=== PATIENT | female | born 1985 | race Caucasian/White ===

== ENCOUNTER 2021-06-07 09:49 | Outpatient (CLI) | payer MEDICAID ==
[2021-06-07 10:20] LABS: GTT GLUCOSE,FASTING 90 mg/dL (70-100)
== END 2021-06-07 09:50 | disposition home or self-care (01) ==
LOC: LAB 09:49
PROVIDERS: ATTEND Midwife
DX: O99.810 Abnormal glucose complicating pregnancy (principal)
CPT/HCPCS: 36415; 82951; 82952

== ENCOUNTER 2021-08-16 04:29 | Inpatient (IN) | payer MEDICAID ==
[2021-08-16] MEDS ORDERED: LACTATED RINGERS 1,000 ML ONE ×2 (04:44→05:12)
[2021-08-16] MEDS ORDERED: OXYTOCIN 10 UNIT/ML VIAL ONE ×2 (04:45→05:11)
[2021-08-16] MEDS ORDERED: miSOPROStoL 200 MCG TABLET PR PRN (05:08)
[2021-08-16] MEDS ORDERED: SODIUM CHLORIDE FLUSH 0.9% 10 ML SYRINGE IVP PRN (05:08)
[2021-08-16] MEDS ORDERED: fentaNYL 100 MCG/2 ML VIAL IVP PRN (05:08)
[2021-08-16] MEDS ORDERED: OXYTOCIN 10 UNIT/ML VIAL IM PRN (05:08)
[2021-08-16] MEDS ORDERED: TERBUTALINE 1 MG/ML VIAL SUBQ PRN (05:08)
[2021-08-16] MEDS ORDERED: CARBOPROST TROMETHAMINE 250 MCG/ML AMP IM PRN (05:08)
[2021-08-16] MEDS ORDERED: LABETALOL 20 MG/4 ML SYRINGE IVP PRN ×2 (05:08)
[2021-08-16] MEDS ORDERED: TRANEXAMIC ACID IN NACL 1,000 MG/100 ML BAG IV PRN (05:08)
[2021-08-16] MEDS ORDERED: miSOPROStoL 200 MCG TABLET BC PRN (05:08)
[2021-08-16] MEDS ORDERED: hydrALAZINE INJ 20 MG/ML VIAL IVP PRN (05:08)
[2021-08-16] MEDS ORDERED: METHYLERGONOVINE 0.2 MG/ML VIAL IM PRN (05:08)
[2021-08-16] MEDS ORDERED: LIDOCAINE-MPF 1% 30 ML VIAL ID PRN (05:08)
[2021-08-16] MEDS ORDERED: miSOPROStoL 200 MCG TABLET ONE (05:10)
[2021-08-16] MEDS ORDERED: TRANEXAMIC ACID IN NACL 1,000 MG/100 ML BAG IV ONE (05:12)
[2021-08-16] MEDS ORDERED: OXYTOCIN/SODIUM CHLORIDE 500 ML IV ONE (05:12)
[2021-08-16 05:16] LABS: BASOPHILS % (AUTO) 0.1 %; EOSINOPHILS # (AUTO) 0.1 10^3/uL (0.0-0.7); EOSINOPHILS % (AUTO) 0.6 %; HCT - HEMATOCRIT 40.9 % (37.0-47.0); HGB - HEMOGLOBIN 14.4 g/dL (12.0-16.0); LYMPHOCYTES # (AUTO) 1.6 10^3/uL (1.5-3.5); LYMPHOCYTES % (AUTO) 11.3 %; MEAN CORPUSCULAR HEMOGLOBIN 30.9 pg (27.0-31.0); MEAN CORPUSCULAR HGB CONC 35.2 g/dL (32.0-36.0); MEAN CORPUSCULAR VOLUME 87.8 fL (81.0-99.0); MEAN PLATELET VOLUME 10.6 fL (7.9-10.8); MONOCYTES # (AUTO) 0.9 10^3/uL (0.0-1.0); MONOCYTES % (AUTO) 6.3 %; NEUTROPHILS # (AUTO) 11.8 10^3/uL (1.5-6.6); NEUTROPHILS % (AUTO) 81.2 %; PLT - PLATELET COUNT 182 10^3/uL (130-450); RED BLOOD COUNT 4.66 10^6/uL (4.20-5.40); RED CELL DISTRIBUTION WIDTH 14.5 % (12.0-15.0); WHITE BLOOD COUNT 14.5 x10^3/uL (4.8-10.8)
--- NOTE | 2021-08-16 05:16 | HISTORY & PHYSICAL EXAMINATION ---
Admit History - Visit Reason Visit Reason: Contractions - : 2 Parity: 1 Premature: 0 Ectopic: 0 : 0 Care: positive: Other ([facility]) Complications This : positive: None Smoking Status: Never smoker - Mother's Labs Mother's Blood Type: positive: O Mother's RH: positive: Positive GBS: positive: Group B Step Negative Rubella Status: positive: Immune - Other Maternal History Other Maternal History: HPI: 36-year-old -0-0-1 at 39 weeks 4 days gestation. Presents today in labor. Contractions started around 0200. She was managed by the [facility] with Faye Bejarano, but recently tested positive for Covid and felt to be better served in the hospital. She has good movement. Denies loss of fluid. No HATHAWAY/BV or RUQP. No vaginal bleeding. Denies nausea and vomiting. Denies urinary urgency or dysuria. Patient did have some Covid symptoms approximately 3 weeks ago along with her entire family. She subsequently had a negative home test for Covid approxi-1 week ago. Recently prior to testing to visit her field clinical engineer, she had a positive Covid test although no significant symptoms. She has a slight lingering dry cough, but this is intermittent and not severe. No fever or chills. Everyone else at home seems to have recovered. All other symptoms reviewed and were negative except per HPI. PMH Depression PSH No prior abdominal surgeries OB History -0-0-1 1. 41 weeks. Prolonged labor, VAVD, 9 pounds 3 ounces, Fourth-degree midline laceration SH Denies tobacco, alcohol, drugs Family History Noncontributory Allergies No known drug allergy Medications Celexa Physical exam: General: Alert, oriented, no acute distress Head: Normal cephalic atraumatic Eyes: PERRLA, extraocular motions intact. Respiratory: Normal rate of respiration. No accessory muscle use, normal respiratory effort. Cardiovascular: Regular rate and rhythm Abdomen: Gravid, nontender, nondistended Extremities: Normal range of motion Neuro: Oriented x3. Normal movements Psych: Appropriate mood and affect. Normal judgment and insight SVE: 7/100/0 FHT: 120 beats per baseline, moderate variability, accelerations present, no decelerations. [place]: Difficult to trace as mother is kneeling and writhing. Appears visually to be alma every 2 to 3 minutes which we can correlate to peaks on the monitor. Plan 36-year-old -0-0-1 at 39 weeks 4 days gestation admitted for term labor 1. Term labor -Admit to L&D, epidural at patient's request, continuous monitoring -Anticipate AROM, dissipate 2. 39 weeks gestation -Adequate care with Faye Bejarano 3. COVID-19 infection -Everyone sick approximately 3 weeks ago, had subsequently negative test followed by a recent positive home test. -Minimal symptoms, but will still take precautions 4. History of fourth degree tear -Patient had a prolonged labor of 33 hours followed by a vacuum extraction and fourth degree tear. -Discussed briefly that after 1/4 degree tear, significant anal sphincter injury, I offer a section prophylactically, however this is usually discussed prior to active labor. -Understands and does not have plan for section at this time. 5. Depression -Continue home Celexa Meds/Allgy - Allergies Allergies/Adverse Reactions: Allergies Allergy/AdvReac Type Severity Reaction Status Date / Time No Known Drug Allergies Allergy Verified 08/16/21 05:03 Physical - Abdominal Exam Vital Signs: Temp Pulse Resp BP Pulse Ox 97.9 F 120 H 24 131/86 H 08/16/21 04:54 08/16/21 04:54 08/16/21 04:54 08/16/21 04:54
[2021-08-16] MEDS: OXYTOCIN/SODIUM CHLORIDE 500 ML IV PRN ×2 (05:50→06:21)
[2021-08-16] MEDS ORDERED: LACTATED RINGERS 1,000 ML IV SCH ×2 (06:00→07:00)
[2021-08-16] MEDS ORDERED: SODIUM CHLORIDE FLUSH 0.9% 10 ML SYRINGE IVP SCH (06:00)
--- NOTE | 2021-08-16 06:22 | DELIVERY NOTE ---
Delivery Note - Labor Labor: positive: Spontaneous - Delivery Method Delivery Method: positive: Spontaneous vaginal delivery - Presentation Presentation: positive: STELLA - right occiput anterior - Nuchal Cord Nuchal Cord: positive: None - Anesthetic Anesthetic: positive: Lidocaine - 1% plain Volume: positive: Other (10 ml) - Amniotic Fluid Description Amniotic Fluid Description: positive: Light meconium - Suture Suture Type: positive: Vicryl Suture Size: positive: 3-0 - : positive: Placed in direct skin contact with mother, Bulb syringe, Stimulated, Warmer used sex: positive: Female - Cord Cord: positive: 3 vessels - Placenta Placenta: positive: Intact - Estimated Blood Loss Estimated Blood Loss (in cc): 400 - Delivery Comments (Free Text/Narrative) Delivery Comments (Free Text/Narrative): Preoperative Diagnoses Term labor 39 weeks gestation COVID-19 infection History of fourth degree midline laceration Depression Postoperative Diagnoses Same Delivered History summary: Patient was a 36-year-old -0-0-1 at 39 weeks 4 days gestation presenting as a transfer from the [facility]. She began alma this morning around 0200 and due to recent Covid infection, her traffic control officer thought she would be better served delivery in the hospital. On arrival, she was 7 cm dilated and alma regularly. She was put on the monitor. She desired an epidural, but started the labor process with nitrous oxide. Due to quick labor, her water broke spontaneously, she had spontaneous rupture of membranes and was checked and found to be complete and feeling the urge to push, so epidural was not able to be placed. Delivery Summary: Patient was placed in the dorsal lithotomy position. Upon maternal pushing the head was delivered atraumatically followed by the anterior shoulder, posterior shoulder, then the remainder of the 's body. A female was delivered with APGARS of 7 at 1 minute and 9 at 5 minutes. The infant was placed on its mother's chest . After the cord finished pulsating, the umbilical cord was clamped times two and cut. After several more minutes, respiratory therapy was called due to grunting and baby appeared duscky. Rspiratory therapy was called and performed approximately one minute airway therapy and was breathing well, so this was discontinuesd. The placenta delivered intact with three vessel cord. Placenta was not sent to pathology. Thirty units of Pitocin were added to the IV fluid and allowed to run freely. Uterine massage was performed until uterus was deemed firm. Upon inspection of the perineum, a first-degree midline laceration and left labial laceration were noted. The first-degree midline laceration was repaired with a single suture of 3-0 Vicryl. The left labial laceration was repaired with a running stitch of 3-0 Vicryl. Upon re-inspection the patient was hemostatic. Uterus again massaged and found to be firm. Needle and sponge counts were correct. Patient was stable and allowed to recover in L&D room. was stable and remained in room with mother. weight is pending at this time.
[2021-08-16] MEDS ORDERED: SIMETHICONE CHEW 80 MG TABLET PO PRN (06:25)
[2021-08-16] MEDS ORDERED: ACETAMINOPHEN 500 MG TABLET PO SCH (07:00)
[2021-08-16] MEDS: IBUPROFEN 600 MG TABLET PO SCH ×3 (07:47→22:06)
[2021-08-16] MEDS: DOCUSATE SODIUM 100 MG CAPSULE PO PRN ×2 (09:52→22:06)
[2021-08-17] MEDS: IBUPROFEN 600 MG TABLET PO SCH ×2 (05:54→12:17)
--- NOTE | 2021-08-17 08:21 | Discharge Plan ---
Discharge Plan Problem Reviewed?: Yes Disposition: Home, Self Care Condition: Good Diet: Regular Activity Restrictions: Additional Comments Shower Restrictions: Yes (no tub baths or hot tubs for 4 weeks) Additional Instructions or Follow Up instructions: Nothing in the vagina for 6 weeks: No intercourse, tampons, douching Call for: -Fever greater than 100.5 -Pain that does not improve with pain medication -Heavy bleeding in which you are soaking a pad an hour for 2 hours in a row -Pain in the legs (especially one sided), swelling in one leg and not the other, or difficulty/pain with breathing. No tub baths or hot tubs for 4 weeks DISCHARGE MEDICATIONS: Ibuprofen 600 mg by mouth every 6 hours as needed for pain Acetaminophen 500-1000 mg by mouth every 8 hours as needed for pain Docusate 100-200 mg by mouth twice a day as needed for constipation No Smoking: If you smoke, Please STOP! Call for help. Follow-up with: Chino Pack MD [Provider Admit Priv/Credential] -
--- NOTE | 2021-08-17 08:23 | DISCHARGE SUMMARY ---
Discharge Summary Admit Date: 08/16/21 Discharge Date: 08/17/21 Discharging Provider: Alcira Condition at Discharge: Good Discharge Disposition: 01 Home, Self Care - DIAGNOSES Admission Diagnoses: Term labor 39 weeks gestation COVID-19 infection History of fourth degree midline laceration Depression Discharge Diagnoses with Status of Each Condition: Same and delivery of term gestation Small for gestational age - HPI History of Present Illness: History summary: Patient was a 36-year-old -0-0-1 at 39 weeks 4 days gestation presented as a transfer from the [facility]. She began alma on morning of presentation around 0200. Due to recent Covid infection, her central sterile tech thought she would be better served delivery in the hospital. On arrival, she was 7 cm dilated and alma regularly. She was put on the monitor. She desired an epidural, but started the labor process with nitrous oxide. Due to quick labor, her water broke spontaneously, she had spontaneous rupture of membranes and was checked and found to be complete and feeling the urge to push, so epidural was not able to be placed. - HOSPITAL COURSE Hospital Course: Patient was admitted and brought to a delivery room. She was placed in the dorsal lithotomy position. Upon maternal pushing the head was delivered atraumatically followed by the anterior shoulder, posterior shoulder, then the remainder of the infant's body. A female was delivered with APGARS of 7 at 1 minute and 9 at 5 minutes. The was placed on its mother's chest . After the cord finished pulsating, the umbilical cord was clamped times two and cut. After several more minutes, respiratory therapy was called due to grunting and baby appeared dusky. Respiratory therapy was called and performed approximately one minute airway therapy and was breathing well, so this was discontinued. The placenta delivered intact with three vessel cord. Placenta was not sent to pathology. Thirty units of Pitocin were added to the IV fluid and allowed to run freely. Uterine massage was performed until uterus was deemed firm. Upon inspection of the perineum, a first-degree midline laceration and left labial laceration were noted. The first-degree midline laceration was repaired with a single suture of 3-0 Vicryl. The left labial laceration was repaired with a running stitch of 3-0 Vicryl. Upon re-inspection the patient was hemostatic. Uterus again massaged and found to be firm. Needle and sponge counts were correct. Patient was stable and allowed to recover in L&D room. was stable and remained in room with mother. weight is 4474g, Apgars 7/9. course was uncomplicated. By PPD#1, patient was meeting goals for discharge. Rh positive/Rubella immune. provider: GUS Henry LABOR: Dr. Pack DELIVERY: Dr. Pack DISCHARGE: Dr. Eli - ALLERGIES Allergies/Adverse Reactions: Allergies Allergy/AdvReac Type Severity Reaction Status Date / Time No Known Drug Allergies Allergy Verified 08/16/21 05:03 - PHYSICAL EXAM AT DISCHARGE General Appearance: positive: No acute distress Neck: positive: Nml inspection Respiratory: positive: No respiratory distress Cardiovascular: positive: Other (RR) Abdomen: positive: Non-tender, Other (FF below umbi) Back: positive: Nml inspection Skin: positive: Color nml, No rash Extremities: positive: Non-tender, No pedal edema Neurologic/Psychiatric: positive: Oriented x3 - LABS Result Diagrams: 08/16/21 04:45 - FOLLOW UP Follow Up: [address] Pack - TIME SPENT Time Spent in Discharge (Minutes): 30
[2021-08-17] MEDS: DOCUSATE SODIUM 100 MG CAPSULE PO PRN (08:37)
[2021-08-17 12:21] VITALS: BP 107/74
--- NOTE | 2021-08-17 13:47 | Labor Flowsheet ---
Labor Flowsheet Datetime Report Generated by CPN: 08/17/2021 13:47 Datetime: 08/17/2021 12:20 VITAL SIGNS NBP Sys/Ellie/Mean (mmHg): 107 : 74 : 79 Pulse: 94 Datetime: 08/16/2021 06:14 PAIN Pain Assessment Comments:
== END 2021-08-17 13:15 | disposition home or self-care (01) | DRG 805 ==
LOC: WFO 04:29 → FBP 04:33 → WFO 05:07 → FBP 05:08
PROVIDERS: ADMIT Obstetrics & Gynecology; ATTEND Obstetrics & Gynecology
PROC: 0HQ9XZZ Repair Perineum Skin, External Approach (ICD-10-PCS; principal; 2021-08-16)
PROC: 10E0XZZ Delivery of Products of Conception, External Approach (ICD-10-PCS; 2021-08-16)
PROC: 0UQMXZZ Repair Vulva, External Approach (ICD-10-PCS; 2021-08-16)
DX: O98.52 Other viral diseases complicating childbirth (principal); U07.1 COVID-19; Z37.0 Single live birth; O70.0 First degree perineal laceration during delivery; O77.0 Labor and delivery complicated by meconium in amniotic fluid; Z3A.39 39 weeks gestation of pregnancy; O99.344 Other mental disorders complicating childbirth; F32.A Depression, unspecified; Z87.59 Personal history of other complications of pregnancy, childbirth and the puerperium
CPT/HCPCS: 36415; 85025; 86850; 86900; 86901; A9270; J7120; 99215

== ENCOUNTER 2023-03-04 07:21 | Outpatient (CLI) | payer MEDICAID ==
--- NOTE | 2023-03-04 22:52 | Ultrasound Report ---
PROCEDURE: Head or Neck Soft Tissue INDICATIONS: GOITER TECHNIQUE: Real-time scanning was performed of the thyroid gland, with image documentation. COMPARISON: None FINDINGS: Right: Thyroid lobe measures 4.8 x 1.1 x 1.8 cm, and is homogeneous in echotexture. Left: Thyroid lobe measures 4.4 x 1.1 x 1.6 cm, and is homogenous in echotexture. Isthmus: 2 mm thick. IMPRESSION: Normal thyroid ultrasound. ACR TI-RADS definitions and recommendations: TI-RADS 1 (benign): 0 points. FNA not needed. TI-RADS 2 (not suspicious): 2 points. FNA not needed. TI-RADS 3 (mildly suspicious): 3 points. "FNA if 2.5 cm or larger, follow up if 1.5 cm or larger (at 1, 3, and 5 years). TI-RADS 4 (moderately suspicious): 4-6 points. "FNA if 1.5 cm or larger, follow up if 1 cm or larger (at 1, 2, 3, and 5 years). TI-RADS 5 (highly suspicious): 7 points or more. "FNA if 1 cm or larger, follow up if 0.5 cm or larger (every year for 5 years). Reviewed by: Nael Dawson MD on 03/04/2023 9:51 PM ASHLEY Approved by: Nael Dawson MD on 03/04/2023 9:51 PM ASHLEY Station ID: [id number]
== END 2023-03-04 07:22 | disposition home or self-care (01) ==
LOC: DI 07:21
PROVIDERS: ATTEND Nurse Practitioner Family
DX: E04.2 Nontoxic multinodular goiter (principal); D64.9 Anemia, unspecified
CPT/HCPCS: 36415; 80050; 80061; 82607; 82728; 82746; 83540; 83721; 84466

== ENCOUNTER 2023-03-04 07:25 | Outpatient (CLI) | payer MEDICAID ==
[2023-03-04 07:48] LABS: BASOPHILS % (AUTO) 0.6 %; EOSINOPHILS # (AUTO) 0.3 10^3/uL (0.0-0.7); EOSINOPHILS % (AUTO) 4.2 %; HCT - HEMATOCRIT 41.3 % (37.0-47.0); HGB - HEMOGLOBIN 13.9 g/dL (12.0-16.0); LYMPHOCYTES # (AUTO) 1.9 10^3/uL (1.5-3.5); LYMPHOCYTES % (AUTO) 30.7 %; MEAN CORPUSCULAR HEMOGLOBIN 29.4 pg (27.0-31.0); MEAN CORPUSCULAR HGB CONC 33.7 g/dL (32.0-36.0); MEAN CORPUSCULAR VOLUME 87.3 fL (81.0-99.0); MEAN PLATELET VOLUME 9.6 fL (7.9-10.8); MONOCYTES # (AUTO) 0.6 10^3/uL (0.0-1.0); MONOCYTES % (AUTO) 10.4 %; NEUTROPHILS # (AUTO) 3.3 10^3/uL (1.5-6.6); NEUTROPHILS % (AUTO) 53.5 %; PLT - PLATELET COUNT 294 10^3/uL (130-450); RED BLOOD COUNT 4.73 10^6/uL (4.20-5.40); RED CELL DISTRIBUTION WIDTH 13.8 % (12.0-15.0); WHITE BLOOD COUNT 6.2 x10^3/uL (4.8-10.8)
[2023-03-04 08:03] LABS: % IRON SATURATION 15 % (20-50); ALBUMIN 4.4 g/dL (3.2-5.5); ALBUMIN/GLOBULIN RATIO 1.8 (1.0-2.2); ALKALINE PHOSPHATASE 72 IU/L (42-121); ALT ALANINE AMINOTRANSFERASE 13 IU/L (10-60); AST ASPARTATE AMINOTRANSFERASE 13 IU/L (10-42); BILIRUBIN,TOTAL 0.5 mg/dL (0.2-1.0); BUN - BLOOD UREA NITROGEN 9 mg/dL (6-20); CALCIUM 9.3 mg/dL (8.5-10.3); CARBON DIOXIDE - CO2 30 mmol/L (21-32); CHLORIDE 106 mmol/L (101-111); CHOL/HDL RATIO 3.7 (<4.4); CHOLESTEROL 142 mg/dL; CREATININE 0.6 mg/dL (0.6-1.3); GFR - MDRD 113 (>89); GLUCOSE 89 mg/dL (74-104); HDL CHOLESTEROL 38 mg/dL; IRON 51 ug/dL (50-212); LDL CHOLESTEROL,CALCULATED 84 mg/dL; LDL/HDL RATIO 2.2 (<4.4); POTASSIUM 3.7 mmol/L (3.5-4.5); SODIUM 141 mmol/L (135-145); TOTAL IRON BINDING CAPACITY 351 ug/dL (250-450); TOTAL PROTEIN 6.9 g/dL (6.4-8.9); TRANSFERRIN 251 mg/dL (203-362); TRIGLYCERIDES 100 mg/dL (48-352); VLDL CHOLESTEROL 20 mg/dL
[2023-03-04 08:18] LABS: THYROID STIMULATING HORMONE 1.84 uIU/mL (0.34-5.60)
[2023-03-04 08:25] LABS: FERRITIN 58.3 ng/mL (11.0-306.8)
== END 2023-03-04 07:26 | disposition home or self-care (01) ==
LOC: LAB 07:25
PROVIDERS: ATTEND Nurse Practitioner Family
DX: Z00.00 Encounter for general adult medical examination without abnormal findings (principal); Z71.3 Dietary counseling and surveillance
CPT/HCPCS: 36415; 80050; 80061; 82607; 82728; 82746; 83540; 83721; 84466